=== PATIENT | male | born 1980 | race American Indian/Alaskan Native ===

== ENCOUNTER 2018-11-12 14:52 | Observation (INO) | payer SELFPAY ==
--- NOTE | 2018-11-12 14:58 | Emergency Department Report ---
Blank Doc - Documentation Documentation: This is a 38-year-old male that presents with generalized weakness. Denies any pain. This initial assessment/diagnostic orders/clinical plan/treatment(s) is/are subject to change based on patient's health status, clinical progression and re- assessment by fellow clinical providers in the ED. Further treatment and workup at subsequent clinical providers discretion. Patient/guardians urged not to elope from the ED as their condition may be serious if not clinically assessed and managed. Initial orders include: 1- Patient sent to [facility] for further evaluation and treatment 2- labs 3- UA
[2018-11-12 15:44] LABS: Basophils % (Auto) 0.4 % (0.0-1.8); Eosinophils % (Auto) 0.6 % (0.0-4.3); Hematocrit 36.3 % (35.5-45.6); Lymphocytes # (Auto) 1.2 K/mm3 (1.2-5.4); Lymphocytes % (Auto) 17.2 % (13.4-35.0); Mean Corpuscular HGB Conc 33 % (32-34); Mean Corpuscular Volume 91 fl (84-94); Monocytes # (Auto) 0.6 K/mm3 (0.0-0.8); Monocytes % (Auto) 9.4 % (0.0-7.3); Platelet Count 212 K/mm3 (140-440); Red Blood Count 4.01 M/mm3 (3.65-5.03); Red Cell Distribution Width 14.3 % (13.2-15.2)
[2018-11-12 15:45] LABS: Alanine Aminotransferase 84 units/L (7-56); BUN/Creatinine Ratio 20; Blood Urea Nitrogen 8 mg/dL (9-20); Calcium 9.3 mg/dL (8.4-10.2); Hemolysis Index 4
[2018-11-12 15:59] LABS: Bilirubin,Urine NEG (Negative); Blood,Urine NEG (Negative); Color,Urine Straw (Yellow); Mucus,Urine FEW /HPF; Protein,Urine <15 mg/dL mg/dL (Negative); Urobilinogen,Urine < 2.0 mg/dL (<2.0); WBC,Urine < 1.0 /HPF (0.0-6.0)
[2018-11-12] MEDS ORDERED: NACL 0.9% 500 ML 500 ML IV ONE (16:29)
[2018-11-12] MEDS ORDERED: HumuLIN R IV ONE (16:29)
--- NOTE | 2018-11-12 16:33 | Emergency Department Report ---
ED General Adult HPI - General Chief complaint: Weakness Stated complaint: WEAKNESS Time Seen by Provider: 11/12/18 14:56 Source: patient, RN notes reviewed Mode of arrival: Ambulatory Limitations: No Limitations - History of Present Illness Initial comments: This is a 38-year-old gentleman. The patient is not known to this provider previously. His past medical history includes diabetes and pancreatitis. He reports supposed to be taking metformin and glipizide. He has been out of his medications. He presents to the emergency room with a complaint of painless weakness. This is present for over 1 month. It is associated with unintentional weight loss. He endorses malaise and fatigue. He denies physical pain. He endorses bright red blood per rectum. Symptoms present for 1 month. No headache, neck pain, chest pain or abdominal pain. Positive new abdominal distention. Positive new lower extremity erythematous rashes. No recent acetaminophen consumption. Endorses recreational alcohol consumption. -: Gradual, week(s) Consistency: constant Improves with: none Worsens with: none - Related Data Allergies Allergy/AdvReac Type Severity Reaction Status Date / Time No Known Allergies Allergy Unverified 11/12/18 14:55 ED Review of Systems ROS: Stated complaint: WEAKNESS Other details as noted in HPI Constitutional: malaise, weakness. denies: fever Eyes: denies: eye discharge ENT: denies: epistaxis Respiratory: denies: cough Cardiovascular: denies: chest pain Gastrointestinal: hematochezia Genitourinary: denies: dysuria Musculoskeletal: myalgia Skin: rash, lesions Neurological: weakness. denies: headache ED Past Medical Hx - Past Medical History Previous Medical History?: Yes Hx Diabetes: Yes Additional medical history: Pancreatitis - Surgical History Past Surgical History?: No - Social History Smoking Status: Current Every Day Smoker Substance Use Type: Alcohol, Marijuana ED Physical Exam - General Limitations: No Limitations General appearance: alert, in no apparent distress, cachectic - Head Head exam: Present: atraumatic, normocephalic - Eye Eye exam: Present: normal appearance, EOMI. Absent: nystagmus - ENT ENT exam: Present: normal exam, normal orophraynx, mucous membranes moist, normal external ear exam - Neck Neck exam: Present: normal inspection, full ROM. Absent: tenderness, meningismus - Respiratory Respiratory exam: Present: normal lung sounds bilaterally. Absent: respiratory distress - Cardiovascular Cardiovascular Exam: Present: regular rate, normal rhythm, normal heart sounds. Absent: bradycardia, tachycardia, irregular rhythm, systolic murmur, diastolic murmur, rubs, gallop - GI/Abdominal GI/Abdominal exam: Present: soft, distended. Absent: tenderness, guarding, rebound, rigid, pulsatile mass - Rectal Rectal exam: Present: normal inspection, bloody stool, hemorrhoids (internal hemorrhoids appreciated), other (chaperoned by nurse Inga Gotti) - Extremities Exam Extremities exam: Present: normal inspection (scattered nontender lower extremity telangiectasias noted), full ROM, other (2+ pulses noted in the bilateral upper, lower extremities. Compartments soft. No long bony tenderness. The pelvis is stable.). Absent: joint swelling, calf tenderness - Back Exam Back exam: Present: normal inspection, full ROM. Absent: tenderness, CVA tenderness (R), CVA tenderness (L), paraspinal tenderness, vertebral tenderness - Neurological Exam Neurological exam: Present: alert, normal gait, other (Extraocular movements intact. Tongue midline. No facial droop. Facial sensation intact to light to uch in the V1, V2, V3 distribution bilaterally. 5 and 5 strength in 4 extremities.. Sensation is intact to light touch in 4 extremities.). Absent: motor sensory deficit - Psychiatric Psychiatric exam: Present: normal affect, normal mood - Skin Skin exam: Present: warm, dry, intact, normal color. Absent: rash ED Course Vital Signs 11/12/18 11/12/18 11/12/18 14:57 16:30 16:33 Temperature 98.3 F Pulse Rate 80 80 85 Respiratory 16 16 18 Rate Blood Pressure 102/71 Blood Pressure 112/81 [Left] O2 Sat by Pulse 100 98 99 Oximetry 11/12/18 11/12/18 11/12/18 17:10 17:25 21:18 Temperature 98.3 F Pulse Rate 72 68 Respiratory 14 14 15 Rate Blood Pressure Blood Pressure 120/81 102/70 [Left] O2 Sat by Pulse 98 99 Oximetry - Reevaluation(s) Reevaluation #1: 11/12/18 17:34 Differential diagnosis, including but not limited to: Cirrhosis, malignancy, DKA, dehydration, malnutrition, electrolyte derangement, hepatitis GI bleed Assessment and plan: 38-year-old gentleman with a complaint of painless weakness, abdominal distention, and rectal bleeding. Laboratory studies show hyperglycemia, pseudohyponatremia, transaminitis, physical exam shows a cachecti c wasted-appearing male, with probable internal hemorrhoids, although bright red blood per rectum is noted on examination. For his hyperglycemia, he will be given IV fluids, and insulin. Patient endorses that he does not have insurance, that he does not have a primary care doctor, and he is not able to and not reliable to follow-up as an outpatient. He is amenable to packed red blood cell transfusion if necessary. Additional screening laboratory studies, including acute hepatitis panel, coagulation profile, acetaminophen, CEA ordered, and addition to CT scan of the abdomen and pelvis. He will be given IV fluids. Discussed with gastroenterology, Dr. Coelho, who is amenable to following in consultation. Reevaluation #2: 11/12/18 19:49 case presented to [facility], working with DR Gallegos patient admitted to medical service ED Medical Decision Making - Lab Data Result diagrams: 11/12/18 15:03 11/12/18 15:03 Vital Signs 11/12/18 11/12/18 11/12/18 14:57 16:30 16:33 Temperature 98.3 F Pulse Rate 80 80 85 Respiratory 16 16 18 Rate Blood Pressure 102/71 Blood Pressure 112/81 [Left] O2 Sat by Pulse 100 98 99 Oximetry 11/12/18 11/12/18 17:10 17:25 Temperature Pulse Rate 72 Respiratory 14 14 Rate Blood Pressure Blood Pressure 120/81 [Left] O2 Sat by Pulse 98 Oximetry Lab Results 11/12/18 11/12/18 11/12/18 Range/Units 15:03 15:03 15:03 WBC 6.9 (4.5-11.0) K/mm3 RBC 4.01 (3.65-5.03) M/mm3 Hgb 12.0 (11.8-15.2) gm/dl Hct 36.3 (35.5-45.6) % MCV 91 (84-94) fl MCH 30 (28-32) pg MCHC 33 (32-34) % RDW 14.3 (13.2-15.2) % Plt Count 212 (140-440) K/mm3 Lymph % (Auto) 17.2 (13.4-35.0) % [place] % (Auto) 9.4 H (0.0-7.3) % Eos % (Auto) 0.6 (0.0-4.3) % Baso % (Auto) 0.4 (0.0-1.8) % Lymph # 1.2 (1.2-5.4) K/mm3 [place] # 0.6 (0.0-0.8) K/mm3 Eos # 0.0 (0.0-0.4) K/mm3 Baso # 0.0 (0.0-0.1) K/mm3 Seg Neutrophils % 72.4 H (40.0-70.0) % Seg Neutrophils # 5.0 (1.8-7.7) K/mm3 PT (12.2-14.9) Sec. INR (0.87-1.13) APTT (24.2-36.6) Sec. VBG pH 7.392 (7.320-7.420) Sodium 127 L (137-145) mmol/L Potassium 4.7 (3.6-5.0) mmol/L Chloride 90.3 L (98-107) mmol/L Carbon Dioxide 24 (22-30) mmol/L Anion Gap 17 mmol/L BUN 8 L (9-20) mg/dL Creatinine 0.4 L (0.8-1.5) mg/dL Estimated GFR > 60 ml/min BUN/Creatinine Ratio 20 % Glucose 575 H* (75-100) mg/dL Lactic Acid (0.7-2.0) mmol/L Calcium 9.3 (8.4-10.2) mg/dL Magnesium (1.7-2.3) mg/dL Total Bilirubin 0.30 (0.1-1.2) mg/dL AST 165 H (5-40) units/L ALT 84 H (7-56) units/L Alkaline Phosphatase 192 H (35-129) units/L Total Creatine Kinase (55-170) units/L Total Protein 7.1 (6.3-8.2) g/dL Albumin 4.0 (3.9-5) g/dL Albumin/Globulin Ratio 1.3 % Lipase (13-60) units/L Urine Color (Yellow) Urine Turbidity (Clear) Urine pH (5.0-7.0) Ur Specific [place] (1.003-1.030) Urine Protein (Negative) mg/dL Urine Glucose (UA) (Negative) mg/dL Urine Ketones (Negative) mg/dL Urine Blood (Negative) Urine Nitrite (Negative) Urine Bilirubin (Negative) Urine Urobilinogen (<2.0) mg/dL Ur Leukocyte Esterase (Negative) Urine WBC (Auto) (0.0-6.0) /HPF Urine RBC (Auto) (0.0-6.0) /HPF U Epithel Cells (Auto) (0-13.0) /HPF Urine Mucus /HPF Acetaminophen (10.0-30.0) ug/mL 11/12/18 11/12/18 11/12/18 Range/Units 15:20 16:50 16:50 WBC (4.5-11.0) K/mm3 RBC (3.65-5.03) M/mm3 Hgb (11.8-15.2) gm/dl Hct (35.5-45.6) % MCV (84-94) fl MCH (28-32) pg MCHC (32-34) % RDW (13.2-15.2) % Plt Count (140-440) K/mm3 Lymph % (Auto) (13.4-35.0) % [place] % (Auto) (0.0-7.3) % Eos % (Auto) (0.0-4.3) % Baso % (Auto) (0.0-1.8) % Lymph # (1.2-5.4) K/mm3 [place] # (0.0-0.8) K/mm3 Eos # (0.0-0.4) K/mm3 Baso # (0.0-0.1) K/mm3 Seg Neutrophils % (40.0-70.0) % Seg Neutrophils # (1.8-7.7) K/mm3 PT (12.2-14.9) Sec. INR (0.87-1.13) APTT (24.2-36.6) Sec. VBG pH (7.320-7.420) Sodium (137-145) mmol/L Potassium (3.6-5.0) mmol/L Chloride (98-107) mmol/L Carbon Dioxide (22-30) mmol/L Anion Gap mmol/L BUN (9-20) mg/dL Creatinine (0.8-1.5) mg/dL Estimated GFR ml/min BUN/Creatinine Ratio % Glucose (75-100) mg/dL Lactic Acid 2.20 H* (0.7-2.0) mmol/L Calcium (8.4-10.2) mg/dL Magnesium 1.80 (1.7-2.3) mg/dL Total Bilirubin (0.1-1.2) mg/dL AST (5-40) units/L ALT (7-56) units/L Alkaline Phosphatase (35-129) units/L Total Creatine Kinase 144 (55-170) units/L Total Protein (6.3-8.2) g/dL Albumin (3.9-5) g/dL Albumin/Globulin Ratio % Lipase (13-60) units/L Urine Color Straw (Yellow) Urine Turbidity Clear (Clear) Urine pH 5.0 (5.0-7.0) Ur Specific [place] 1.028 (1.003-1.030) Urine Protein <15 mg/dl (Negative) mg/dL Urine Glucose (UA) >=500 (Negative) mg/dL Urine Ketones Tr (Negative) mg/dL Urine Blood Neg (Negative) Urine Nitrite Neg (Negative) Urine Bilirubin Neg (Negative) Urine Urobilinogen < 2.0 (<2.0) mg/dL Ur Leukocyte Esterase Neg (Negative) Urine WBC (Auto) < 1.0 (0.0-6.0) /HPF Urine RBC (Auto) 1.0 (0.0-6.0) /HPF U Epithel Cells (Auto) < 1.0 (0-13.0) /HPF Urine Mucus Few /HPF Acetaminophen (10.0-30.0) ug/mL 11/12/18 11/12/18 11/12/18 Range/Units 16:50 16:50 16:50 WBC (4.5-11.0) K/mm3 RBC (3.65-5.03) M/mm3 Hgb (11.8-15.2) gm/dl Hct (35.5-45.6) % MCV (84-94) fl MCH (28-32) pg MCHC (32-34) % RDW (13.2-15.2) % Plt Count (140-440) K/mm3 Lymph % (Auto) (13.4-35.0) % [place] % (Auto) (0.0-7.3) % Eos % (Auto) (0.0-4.3) % Baso % (Auto) (0.0-1.8) % Lymph # (1.2-5.4) K/mm3 [place] # (0.0-0.8) K/mm3 Eos # (0.0-0.4) K/mm3 Baso # (0.0-0.1) K/mm3 Seg Neutrophils % (40.0-70.0) % Seg Neutrophils # (1.8-7.7) K/mm3 PT 14.8 (12.2-14.9) Sec. INR 1.09 (0.87-1.13) APTT 28.1 (24.2-36.6) Sec. VBG pH (7.320-7.420) Sodium (137-145) mmol/L Potassium (3.6-5.0) mmol/L Chloride (98-107) mmol/L Carbon Dioxide (22-30) mmol/L Anion Gap mmol/L BUN (9-20) mg/dL Creatinine (0.8-1.5) mg/dL Estimated GFR ml/min BUN/Creatinine Ratio % Glucose (75-100) mg/dL Lactic Acid (0.7-2.0) mmol/L Calcium (8.4-10.2) mg/dL Magnesium (1.7-2.3) mg/dL Total Bilirubin (0.1-1.2) mg/dL AST (5-40) units/L ALT (7-56) units/L Alkaline Phosphatase (35-129) units/L Total Creatine Kinase (55-170) units/L Total Protein (6.3-8.2) g/dL Albumin (3.9-5) g/dL Albumin/Globulin Ratio % Lipase 47 (13-60) units/L Urine Color (Yellow) Urine Turbidity (Clear) Urine pH (5.0-7.0) Ur Specific [place] (1.003-1.030) Urine Protein (Negative) mg/dL Urine Glucose (UA) (Negative) mg/dL Urine Ketones (Negative) mg/dL Urine Blood (Negative) Urine Nitrite (Negative) Urine Bilirubin (Negative) Urine Urobilinogen (<2.0) mg/dL Ur Leukocyte Esterase (Negative) Urine WBC (Auto) (0.0-6.0) /HPF Urine RBC (Auto) (0.0-6.0) /HPF U Epithel Cells (Auto) (0-13.0) /HPF Urine Mucus /HPF Acetaminophen < 5.0 L (10.0-30.0) ug/mL Lab Results 11/12/18 11/12/18 11/12/18 Range/Units 15:03 15:03 15:03 WBC 6.9 (4.5-11.0) K/mm3 RBC 4.01 (3.65-5.03) M/mm3 Hgb 12.0 (11.8-15.2) gm/dl Hct 36.3 (35.5-45.6) % MCV 91 (84-94) fl MCH 30 (28-32) pg MCHC 33 (32-34) % RDW 14.3 (13.2-15.2) % Plt Count 212 (140-440) K/mm3 Lymph % (Auto) 17.2 (13.4-35.0) % [place] % (Auto) 9.4 H (0.0-7.3) % Eos % (Auto) 0.6 (0.0-4.3) % Baso % (Auto) 0.4 (0.0-1.8) % Lymph # 1.2 (1.2-5.4) K/mm3 [place] # 0.6 (0.0-0.8) K/mm3 Eos # 0.0 (0.0-0.4) K/mm3 Baso # 0.0 (0.0-0.1) K/mm3 Seg Neutrophils % 72.4 H (40.0-70.0) % Seg Neutrophils # 5.0 (1.8-7.7) K/mm3 PT (12.2-14.9) Sec. INR (0.87-1.13) APTT (24.2-36.6) Sec. VBG pH 7.392 (7.320-7.420) Sodium 127 L (137-145) mmol/L Potassium 4.7 (3.6-5.0) mmol/L Chloride 90.3 L (98-107) mmol/L Carbon Dioxide 24 (22-30) mmol/L Anion Gap 17 mmol/L BUN 8 L (9-20) mg/dL Creatinine 0.4 L (0.8-1.5) mg/dL Estimated GFR > 60 ml/min BUN/Creatinine Ratio 20 % Glucose 575 H* (75-100) mg/dL Lactic Acid (0.7-2.0) mmol/L Calcium 9.3 (8.4-10.2) mg/dL Magnesium (1.7-2.3) mg/dL Total Bilirubin 0.30 (0.1-1.2) mg/dL AST 165 H (5-40) units/L ALT 84 H (7-56) units/L Alkaline Phosphatase 192 H (35-129) units/L Ammonia (25-60) umol/L Total Creatine Kinase (55-170) units/L Total Protein 7.1 (6.3-8.2) g/dL Albumin 4.0 (3.9-5) g/dL Albumin/Globulin Ratio 1.3 % Lipase (13-60) units/L Urine Color (Yellow) Urine Turbidity (Clear) Urine pH (5.0-7.0) Ur Specific [place] (1.003-1.030) Urine Protein (Negative) mg/dL Urine Glucose (UA) (Negative) mg/dL Urine Ketones (Negative) mg/dL Urine Blood (Negative) Urine Nitrite (Negative) Urine Bilirubin (Negative) Urine Urobilinogen (<2.0) mg/dL Ur Leukocyte Esterase (Negative) Urine WBC (Auto) (0.0-6.0) /HPF Urine RBC (Auto) (0.0-6.0) /HPF U Epithel Cells (Auto) (0-13.0) /HPF Urine Mucus /HPF Acetaminophen (10.0-30.0) ug/mL Hepatitis A IgM Ab (NonReactive) Hep Bs Antigen (Negative) Hep B Core IgM Ab (NonReactive) Hepatitis C Antibody (NonReactive) Blood Type Antibody Screen CLAIRE Antibody Screen 11/12/18 11/12/18 11/12/18 Range/Units 15:20 16:50 16:50 WBC (4.5-11.0) K/mm3 RBC (3.65-5.03) M/mm3 Hgb (11.8-15.2) gm/dl Hct (35.5-45.6) % MCV (84-94) fl MCH (28-32) pg MCHC (32-34) % RDW (13.2-15.2) % Plt Count (140-440) K/mm3 Lymph % (Auto) (13.4-35.0) % [place] % (Auto) (0.0-7.3) % Eos % (Auto) (0.0-4.3) % Baso % (Auto) (0.0-1.8) % Lymph # (1.2-5.4) K/mm3 [place] # (0.0-0.8) K/mm3 Eos # (0.0-0.4) K/mm3 Baso # (0.0-0.1) K/mm3 Seg Neutrophils % (40.0-70.0) % Seg Neutrophils # (1.8-7.7) K/mm3 PT (12.2-14.9) Sec. INR (0.87-1.13) APTT (24.2-36.6) Sec. VBG pH (7.320-7.420) Sodium (137-145) mmol/L Potassium (3.6-5.0) mmol/L Chloride (98-107) mmol/L Carbon Dioxide (22-30) mmol/L Anion Gap mmol/L BUN (9-20) mg/dL Creatinine (0.8-1.5) mg/dL Estimated GFR ml/min BUN/Creatinine Ratio % Glucose (75-100) mg/dL Lactic Acid 2.20 H* (0.7-2.0) mmol/L Calcium (8.4-10.2) mg/dL Magnesium 1.80 (1.7-2.3) mg/dL Total Bilirubin (0.1-1.2) mg/dL AST (5-40) units/L ALT (7-56) units/L Alkaline Phosphatase (35-129) units/L Ammonia (25-60) umol/L Total Creatine Kinase 144 (55-170) units/L Total Protein (6.3-8.2) g/dL Albumin (3.9-5) g/dL Albumin/Globulin Ratio % Lipase (13-60) units/L Urine Color Straw (Yellow) Urine Turbidity Clear (Clear) Urine pH 5.0 (5.0-7.0) Ur Specific [place] 1.028 (1.003-1.030) Urine Protein <15 mg/dl (Negative) mg/dL Urine Glucose (UA) >=500 (Negative) mg/dL Urine Ketones Tr (Negative) mg/dL Urine Blood Neg (Negative) Urine Nitrite Neg (Negative) Urine Bilirubin Neg (Negative) Urine Urobilinogen < 2.0 (<2.0) mg/dL Ur Leukocyte Esterase Neg (Negative) Urine WBC (Auto) < 1.0 (0.0-6.0) /HPF Urine RBC (Auto) 1.0 (0.0-6.0) /HPF U Epithel Cells (Auto) < 1.0 (0-13.0) /HPF Urine Mucus Few /HPF Acetaminophen (10.0-30.0) ug/mL Hepatitis A IgM Ab (NonReactive) Hep Bs Antigen (Negative) Hep B Core IgM Ab (NonReactive) Hepatitis C Antibody (NonReactive) Blood Type Antibody Screen CLAIRE Antibody Screen 11/12/18 11/12/18 11/12/18 Range/Units 16:50 16:50 16:50 WBC (4.5-11.0) K/mm3 RBC (3.65-5.03) M/mm3 Hgb (11.8-15.2) gm/dl Hct (35.5-45.6) % MCV (84-94) fl MCH (28-32) pg MCHC (32-34) % RDW (13.2-15.2) % Plt Count (140-440) K/mm3 Lymph % (Auto) (13.4-35.0) % [place] % (Auto) (0.0-7.3) % Eos % (Auto) (0.0-4.3) % Baso % (Auto) (0.0-1.8) % Lymph # (1.2-5.4) K/mm3 [place] # (0.0-0.8) K/mm3 Eos # (0.0-0.4) K/mm3 Baso # (0.0-0.1) K/mm3 Seg Neutrophils % (40.0-70.0) % Seg Neutrophils # (1.8-7.7) K/mm3 PT 14.8 (12.2-14.9) Sec. INR 1.09 (0.87-1.13) APTT 28.1 (24.2-36.6) Sec. VBG pH (7.320-7.420) Sodium (137-145) mmol/L Potassium (3.6-5.0) mmol/L Chloride (98-107) mmol/L Carbon Dioxide (22-30) mmol/L Anion Gap mmol/L BUN (9-20) mg/dL Creatinine (0.8-1.5) mg/dL Estimated GFR ml/min BUN/Creatinine Ratio % Glucose (75-100) mg/dL Lactic Acid (0.7-2.0) mmol/L Calcium (8.4-10.2) mg/dL Magnesium (1.7-2.3) mg/dL Total Bilirubin (0.1-1.2) mg/dL AST (5-40) units/L ALT (7-56) units/L Alkaline Phosphatase (35-129) units/L Ammonia 35.0 (25-60) umol/L Total Creatine Kinase (55-170) units/L Total Protein (6.3-8.2) g/dL Albumin (3.9-5) g/dL Albumin/Globulin Ratio % Lipase (13-60) units/L Urine Color (Yellow) Urine Turbidity (Clear) Urine pH (5.0-7.0) Ur Specific [place] (1.003-1.030) Urine Protein (Negative) mg/dL Urine Glucose (UA) (Negative) mg/dL Urine Ketones (Negative) mg/dL Urine Blood (Negative) Urine Nitrite (Negative) Urine Bilirubin (Negative) Urine Urobilinogen (<2.0) mg/dL Ur Leukocyte Esterase (Negative) Urine WBC (Auto) (0.0-6.0) /HPF Urine RBC (Auto) (0.0-6.0) /HPF U Epithel Cells (Auto) (0-13.0) /HPF Urine Mucus /HPF Acetaminophen (10.0-30.0) ug/mL Hepatitis A IgM Ab (NonReactive) Hep Bs Antigen (Negative) Hep B Core IgM Ab (NonReactive) Hepatitis C Antibody (NonReactive) Blood Type O POSITIVE Antibody Screen TNR CLAIRE Antibody Screen Negative 11/12/18 11/12/18 11/12/18 Range/Units 16:50 16:50 16:50 WBC (4.5-11.0) K/mm3 RBC (3.65-5.03) M/mm3 Hgb (11.8-15.2) gm/dl Hct (35.5-45.6) % MCV (84-94) fl MCH (28-32) pg MCHC (32-34) % RDW (13.2-15.2) % Plt Count (140-440) K/mm3 Lymph % (Auto) (13.4-35.0) % [place] % (Auto) (0.0-7.3) % Eos % (Auto) (0.0-4.3) % Baso % (Auto) (0.0-1.8) % Lymph # (1.2-5.4) K/mm3 [place] # (0.0-0.8) K/mm3 Eos # (0.0-0.4) K/mm3 Baso # (0.0-0.1) K/mm3 Seg Neutrophils % (40.0-70.0) % Seg Neutrophils # (1.8-7.7) K/mm3 PT (12.2-14.9) Sec. INR (0.87-1.13) APTT (24.2-36.6) Sec. VBG pH (7.320-7.420) Sodium (137-145) mmol/L Potassium (3.6-5.0) mmol/L Chloride (98-107) mmol/L Carbon Dioxide (22-30) mmol/L Anion Gap mmol/L BUN (9-20) mg/dL Creatinine (0.8-1.5) mg/dL Estimated GFR ml/min BUN/Creatinine Ratio % Glucose (75-100) mg/dL Lactic Acid (0.7-2.0) mmol/L Calcium (8.4-10.2) mg/dL Magnesium (1.7-2.3) mg/dL Total Bilirubin (0.1-1.2) mg/dL AST (5-40) units/L ALT (7-56) units/L Alkaline Phosphatase (35-129) units/L Ammonia (25-60) umol/L Total Creatine Kinase (55-170) units/L Total Protein (6.3-8.2) g/dL Albumin (3.9-5) g/dL Albumin/Globulin Ratio % Lipase 47 (13-60) units/L Urine Color (Yellow) Urine Turbidity (Clear) Urine pH (5.0-7.0) Ur Specific [place] (1.003-1.030) Urine Protein (Negative) mg/dL Urine Glucose (UA) (Negative) mg/dL Urine Ketones (Negative) mg/dL Urine Blood (Negative) Urine Nitrite (Negative) Urine Bilirubin (Negative) Urine Urobilinogen (<2.0) mg/dL Ur Leukocyte Esterase (Negative) Urine WBC (Auto) (0.0-6.0) /HPF Urine RBC (Auto) (0.0-6.0) /HPF U Epithel Cells (Auto) (0-13.0) /HPF Urine Mucus /HPF Acetaminophen < 5.0 L (10.0-30.0) ug/mL Hepatitis A IgM Ab Non-reactive (NonReactive) Hep Bs Antigen Non-reactive (Negative) Hep B Core IgM Ab Non-reactive (NonReactive) Hepatitis C Antibody Non-reactive (NonReactive) Blood Type Antibody Screen CLAIRE Antibody Screen 11/12/18 Range/Units 17:52 WBC (4.5-11.0) K/mm3 RBC (3.65-5.03) M/mm3 Hgb (11.8-15.2) gm/dl Hct (35.5-45.6) % MCV (84-94) fl MCH (28-32) pg MCHC (32-34) % RDW (13.2-15.2) % Plt Count (140-440) K/mm3 Lymph % (Auto) (13.4-35.0) % [place] % (Auto) (0.0-7.3) % Eos % (Auto) (0.0-4.3) % Baso % (Auto) (0.0-1.8) % Lymph # (1.2-5.4) K/mm3 [place] # (0.0-0.8) K/mm3 Eos # (0.0-0.4) K/mm3 Baso # (0.0-0.1) K/mm3 Seg Neutrophils % (40.0-70.0) % Seg Neutrophils # (1.8-7.7) K/mm3 PT (12.2-14.9) Sec. INR (0.87-1.13) APTT (24.2-36.6) Sec. VBG pH (7.320-7.420) Sodium (137-145) mmol/L Potassium (3.6-5.0) mmol/L Chloride (98-107) mmol/L Carbon Dioxide (22-30) mmol/L Anion Gap mmol/L BUN (9-20) mg/dL Creatinine (0.8-1.5) mg/dL Estimated GFR ml/min BUN/Creatinine Ratio % Glucose (75-100) mg/dL Lactic Acid 1.40 (0.7-2.0) mmol/L Calcium (8.4-10.2) mg/dL Magnesium (1.7-2.3) mg/dL Total Bilirubin (0.1-1.2) mg/dL AST (5-40) units/L ALT (7-56) units/L Alkaline Phosphatase (35-129) units/L Ammonia (25-60) umol/L Total Creatine Kinase (55-170) units/L Total Protein (6.3-8.2) g/dL Albumin (3.9-5) g/dL Albumin/Globulin Ratio % Lipase (13-60) units/L Urine Color (Yellow) Urine Turbidity (Clear) Urine pH (5.0-7.0) Ur Specific [place] (1.003-1.030) Urine Protein (Negative) mg/dL Urine Glucose (UA) (Negative) mg/dL Urine Ketones (Negative) mg/dL Urine Blood (Negative) Urine Nitrite (Negative) Urine Bilirubin (Negative) Urine Urobilinogen (<2.0) mg/dL Ur Leukocyte Esterase (Negative) Urine WBC (Auto) (0.0-6.0) /HPF Urine RBC (Auto) (0.0-6.0) /HPF U Epithel Cells (Auto) (0-13.0) /HPF Urine Mucus /HPF Acetaminophen (10.0-30.0) ug/mL Hepatitis A IgM Ab (NonReactive) Hep Bs Antigen (Negative) Hep B Core IgM Ab (NonReactive) Hepatitis C Antibody (NonReactive) Blood Type Antibody Screen CLAIRE Antibody Screen - EKG Data -: EKG Interpreted by Sd EKG shows normal: sinus rhythm Rate: normal - EKG Data 11/12/18 17:38 This is a normal sinus rhythm, 76 bpm, normal axis, QTC prolonged, question atrial enlargement, motion artifact, high left ventricular voltage, abnormal EKG, no endorsement of chest pain, this EKG is not consistent with ST elevation myocardial infarction. - Radiology Data Radiology results: pending, report reviewed, image reviewed Print Report Referring Physician: VANESSA OSEI Patient Name: VANESSA VICENTE Date of : 1980 Sex: Male Report Date: 2018-11-12 Report Status: Finalized Findings [facility] [address] [id number] Cat Scan Report Signed Patient: VANESSA VICENTE JR MR#: [id number] : 1980 Acct:[id number] Age/Sex: 38 / M ADM Date: 11/12/18 Loc: 3A A389-[address]: JUD GALLEGOS MD Ordering Physician: VANESSA OSEI MD Date of Service: 11/12/18 Procedure(s): CT abdomen pelvis w con Accession Number(s): [id number] cc: VANESSA OSEI MD PROCEDURE: CT ABDOMEN PELVIS W CON TECHNIQUE: Computerized axial tomography of the abdomen and pelvis was performed after the IV injection of iodinated nonionic contrast. CT DOSE LENGTH PRODUCT: 729.3 mGycm HISTORY: abd distension ascites suspect ca vs cirrhosis COMPARISONS: None . FINDINGS: Liver, spleen, and adrenal glands are within normal limits. Bilateral kidneys demonstrate uniform enhancement without hydronephrosis. Urinary bladder is partially filled with normal outlines. There is no free fluid or free air. Gallbladder is unremarkable. Small bowel loops are within normal limits. Appendix is not distinctly visualized. There are no inflammatory changes in the right lower quadrant.. There is diffuse calcification of pancreas. A well- defined cystic lesion measuring 8.0 cm 0.5 cm is noted superior to the pancreas displacing the stomach superiorly. An irregular fluid collection is noted measuring 2.7 x 2.2 cm involving the pancreatic neck. Vertebral height is normal. 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 Diffuse calcification of pancreas is consistent with chronic pancreatitis. This document is electronically signed by Kaycee Robbins MD., November 12 2018 10:10:57 PM ET Transcribed By: [facility] [place] Dictated By: KAYCEE ROBBINS Electronically Authenticated By: KAYCEE ROBBINS Signed Date/Time: 11/12/182111 Critical care attestation.: If time is entered above; I have spent that time in minutes in the direct care of this critically ill patient, excluding procedure time. ED Disposition Clinical Impression: Lower GI bleed, Hyperglycemia, Case management patient Disposition: DC-09 OP ADMIT IP TO THIS HOSP Is pt being admited?: Yes Condition: Fair
[2018-11-12 17:34] LABS: INR 1.09 (0.87-1.13)
[2018-11-12 17:36] LABS: Partial Thromboplastin Time 28.1 Sec. (24.2-36.6)
[2018-11-12 17:55] LABS: Hepatitis B Surface Antigen Non-Reactive (Negative); Hepatitis C Virus Antibody Non-Reactive (NonReactive)
[2018-11-12] MEDS ORDERED: MORPHINE IV PRN (20:06)
[2018-11-12] MEDS ORDERED: ZOFRAN IV PRN (20:06)
[2018-11-12] MEDS ORDERED: TYLENOL PO PRN (20:06)
[2018-11-12] MEDS ORDERED: SODIUM CHLORIDE FLUSH SYRINGE 10 ML IV PRN (20:06)
[2018-11-12] MEDS ORDERED: DILAUDID IV PRN (20:08)
[2018-11-12] MEDS ORDERED: D50W (25GM) Syringe IV PRN (20:21)
--- NOTE | 2018-11-12 20:46 | History and Physical Report ---
<VANNESA ARMENDARIZ - Last Filed: 11/12/18 21:17> History of Present Illness Date of examination: 11/12/18 Date of admission: 11/12/18 20:06 Chief complaint: Generalized weakness and gross blood per rectum History of present illness: 38-year-old -[place] male with history of hemorrhoids, DM 2, pancreatitis who presented to [facility] ED with complaints of generalized weakness and bright red blood per rectum. Patient states that he feels fatigued and weak for the past week. Additionally he has bright blood per rectum for the past mo nth. He states that he thought rectal bleeding was due to hemorrhoids "flareup ". He reports that he has had unintentional weight loss over the past month. Patient states that he does not have medical insurance and ran out of metformin and glipizide about a month ago. He is unsure whether or not the fatigue is due to hyperglycemia. Admits to unintentional weight loss, malaise, fatigue. Denies fever, cough, dyspnea, chest pain, recent sick contacts Past History Past Medical History: diabetes (DM 2), seizures (one episode of questionable seizure history), other (pancreatitis, hemorrhoids) Past Surgical History: No surgical history Social history: smoking (tobacco smokes 1 pack a day, and marijuana abuse), other (admits to social drinking once in a while) Family history: no significant family history Medications and Allergies Allergies Allergy/AdvReac Type Severity Reaction Status Date / Time No Known Allergies Allergy Unverified 11/12/18 14:55 Active Meds: Active Medications Acetaminophen (Tylenol) 650 mg PO Q4H PRN PRN Reason: Pain MILD(1-3)/Fever >100.5/ONOFRE Dextrose (D50w (25gm) Syringe) 50 ml IV PRN PRN PRN Reason: Hypoglycemia Hydromorphone HCl (Dilaudid) 0.5 mg IV Q3H PRN PRN Reason: Pain , Severe (7-10) Stop: 11/13/18 23:59 Sodium Chloride (Nacl 0.9% 1000 Ml) 1,000 mls @ 125 mls/hr IV DIRECT [facility] Insulin Human Lispro (Humalog) 0 unit SUB-Q ACHS [facility]; Protocol Insulin Human Regular (Humulin R) 10 units SUB-Q QHS [facility] Morphine Sulfate (Morphine) 2 mg IV Q4H PRN PRN Reason: Pain, Moderate (4-6) Stop: 11/13/18 23:59 Nicotine (Habitrol) 14 mg TD QDAY [facility] Ondansetron HCl (Zofran) 4 mg IV Q8H PRN PRN Reason: Nausea And Vomiting Sodium Chloride (Sodium Chloride Flush Syringe 10 Ml) 10 ml IV BID [facility] Sodium Chloride (Sodium Chloride Flush Syringe 10 Ml) 10 ml IV PRN PRN PRN Reason: LINE FLUSH Review of Systems All systems: negative (reviewed and no additional unremarkable complaints except as noted below) Constitutional: weight loss (unintentional), fatigue, weakness, malaise Gastrointestinal: hematochezia, other (gross blood per rectum) Exam - Physical Exam Narrative exam: Physical exam General appearance: Present: Mild distress, alert and oriented 3, middle age adult male - EENT Eyes: Present: PERRL, EOM intact ENT: hearing intact, normal dentition - Neck Neck: Present: supple, normal ROM - Respiratory Respiratory effort: Non-labored Respiratory: Clear throughout - Cardiovascular Heart rate: 76 (bpm) Rhythm: Sinus rhythm Heart Sounds: Present: S1 & S2. Absent: rub, click - Extremities Extremities: no ischemia, pulses intact, abnormal () - Peripheral Assessment Peripheral Pulses: within normal limits - Abdominal General gastrointestinal: Distended, soft, non-tender, normal bowel sounds - Integumentary Integumentary: Present: warm, dry - Musculoskeletal Musculoskeletal: generalized weakness - Psychiatric Psychiatric: Appropriate for situation, cooperative - Constitutional Vitals: Temp Pulse Resp BP Pulse Ox 98.3 F 72 14 120/81 98 11/12/18 14:57 11/12/18 17:25 11/12/18 17:25 11/12/18 17:25 11/12/18 17:25 Results - Labs CBC & Chem 7: 11/12/18 15:03 11/12/18 15:03 Labs: Laboratory Last Values WBC 6.9 K/mm3 (4.5-11.0) 11/12/18 15:03 RBC 4.01 M/mm3 (3.65-5.03) 11/12/18 15:03 Hgb 12.0 gm/dl (11.8-15.2) 11/12/18 15:03 Hct 36.3 % (35.5-45.6) 11/12/18 15:03 MCV 91 fl (84-94) 11/12/18 15:03 MCH 30 pg (28-32) 11/12/18 15:03 MCHC 33 % (32-34) 11/12/18 15:03 RDW 14.3 % (13.2-15.2) 11/12/18 15:03 Plt Count 212 K/mm3 (140-440) 11/12/18 15:03 Lymph % (Auto) 17.2 % (13.4-35.0) 11/12/18 15:03 Eagle % (Auto) 9.4 % (0.0-7.3) H 11/12/18 15:03 Eos % (Auto) 0.6 % (0.0-4.3) 11/12/18 15:03 Baso % (Auto) 0.4 % (0.0-1.8) 11/12/18 15:03 Lymph # 1.2 K/mm3 (1.2-5.4) 11/12/18 15:03 Eagle # 0.6 K/mm3 (0.0-0.8) 11/12/18 15:03 Eos # 0.0 K/mm3 (0.0-0.4) 11/12/18 15:03 Baso # 0.0 K/mm3 (0.0-0.1) 11/12/18 15:03 Seg Neutrophils % 72.4 % (40.0-70.0) H 11/12/18 15:03 Seg Neutrophils # 5.0 K/mm3 (1.8-7.7) 11/12/18 15:03 PT 14.8 Sec. (12.2-14.9) 11/12/18 16:50 INR 1.09 (0.87-1.13) 11/12/18 16:50 APTT 28.1 Sec. (24.2-36.6) 11/12/18 16:50 VBG pH 7.392 (7.320-7.420) 11/12/18 15:03 Sodium 127 mmol/L (137-145) L 11/12/18 15:03 Potassium 4.7 mmol/L (3.6-5.0) 11/12/18 15:03 Chloride 90.3 mmol/L (98-107) L 11/12/18 15:03 Carbon Dioxide 24 mmol/L (22-30) 11/12/18 15:03 17 mmol/L 11/12/18 15:03 BUN 8 mg/dL (9-20) L 11/12/18 15:03 0.4 mg/dL (0.8-1.5) L 11/12/18 15:03 Estimated GFR > 60 ml/min 11/12/18 15:03 20 % 11/12/18 15:03 Glucose 575 mg/dL (75-100) H* 11/12/18 15:03 Lactic Acid 1.40 mmol/L (0.7-2.0) 11/12/18 17:52 Calcium 9.3 mg/dL (8.4-10.2) 11/12/18 15:03 Magnesium 1.80 mg/dL (1.7-2.3) 11/12/18 16:50 0.30 mg/dL (0.1-1.2) 11/12/18 15:03 AST 165 units/L (5-40) H 11/12/18 15:03 ALT 84 units/L (7-56) H 11/12/18 15:03 192 units/L (35-129) H 11/12/18 15:03 35.0 umol/L (25-60) 11/12/18 16:50 144 units/L (55-170) 11/12/18 16:50 7.1 g/dL (6.3-8.2) 11/12/18 15:03 4.0 g/dL (3.9-5) 11/12/18 15:03 1.3 % 11/12/18 15:03 47 units/L (13-60) 11/12/18 16:50 Straw (Yellow) 11/12/18 15:20 Clear (Clear) 11/12/18 15:20 5.0 (5.0-7.0) 11/12/18 15:20 Ur Specific Sherman 1.028 (1.003-1.030) 11/12/18 15:20 <15 mg/dl mg/dL (Negative) 11/12/18 15:20 >=500 mg/dL (Negative) 11/12/18 15:20 Tr mg/dL (Negative) 11/12/18 15:20 Neg (Negative) 11/12/18 15:20 Neg (Negative) 11/12/18 15:20 Neg (Negative) 11/12/18 15:20 < 2.0 mg/dL (<2.0) 11/12/18 15:20 Ur Leukocyte Esterase Neg (Negative) 11/12/18 15:20 < 1.0 /HPF (0.0-6.0) 11/12/18 15:20 1.0 /HPF (0.0-6.0) 11/12/18 15:20 U Epithel Cells (Auto) < 1.0 /HPF (0-13.0) 11/12/18 15:20 Few /HPF 11/12/18 15:20 Acetaminophen < 5.0 ug/mL (10.0-30.0) L 11/12/18 16:50 Hepatitis A IgM Ab Non-reactive (NonReactive) 11/12/18 16:50 Hep Bs Antigen Non-reactive (Negative) 11/12/18 16:50 Hep B Core IgM Ab Non-reactive (NonReactive) 11/12/18 16:50 Non-reactive (NonReactive) 11/12/18 16:50 Blood Type O POSITIVE 11/12/18 16:50 Antibody Screen TNR 11/12/18 16:50 CLAIRE Antibody Screen Negative 11/12/18 16:50 - Imaging and Cardiology EKG: image reviewed (sinus rhythm, 76 bpm, QTC prolonged, question atrial enlargement) CT scan - abdomen: report reviewed (A large cystic lesion along the superior aspect of pancreas and a smaller irregular cystic lesionin the pancreatic neck most likely represent pseudocysts secondary to pancreatitis. Diffuse calcification of pancreas is consistent with chronic pancreatitis. ), image reviewed Assessment and Plan Assessment and plan: 38-year-old -[place] male with history of DM 2, pancreatitis who presented to [facility] ED with complaints of generalized weakness and bright red blood per rectum. Ct Abd showed two cystic lesions (1. large lesion along the superior aspect of pancreas, 2. small irregular lesion in the pancreatic neck), which most likely represent pseudocysts secondary to pancreatitis. Patient was found to be hyperglycemic with blood glucose of 575 with no evidence of ketosis. Elevation of liver enzymes AST 165, ALT 84, and Alkaline phosphate 192. Bright red blood per rectum is noted on examination. Dr. Coelho from GI has been consulted and plans to see patient in the a.m. Will admit to medical floor as OBS. Dehydration Hyponatremia- likely secondary to dehydration Hyperglycemia DM 2- uncontrolled Suspicion of cirrhosis Active lower GI bleed Tobacco abuse Marijuana abuse Plan Continue supportive care POC BG monitoring HGBA1C pending SSI and scheduled HS coverage NPO Hydrate with IVF Monitor electrolytes; replete as needed Monitor Liver funtction Monitor Hgb; transfuse prn GI consulted and following Nicotine Patch Counseled for tobacco and marijuana cessation DVT PPX on SCD's hold off on AC d/t active GI bleed; will resume once GI ok Advance Directives: No VTE prophylaxis?: Mechanical Plan of care discussed with patient/family: Yes <JUD ANDRADE - Last Filed: 11/14/18 01:50> History of Present Illness Date of admission: 11/12/18 20:06 Medications and Allergies Active Meds: Active Medications Acetaminophen (Tylenol) 650 mg PO Q4H PRN PRN Reason: Pain MILD(1-3)/Fever >100.5/ONOFRE Dextrose (D50w (25gm) Syringe) 50 ml IV PRN PRN PRN Reason: Hypoglycemia Hydromorphone HCl (Dilaudid) 0.5 mg IV Q3H PRN PRN Reason: Pain , Severe (7-10) Stop: 11/13/18 23:59 Sodium Chloride (Nacl 0.9% 1000 Ml) 1,000 mls @ 125 mls/hr IV DIRECT [facility] Last Admin: 11/13/18 00:14 Dose: 125 mls/hr Documented by: Insulin Human Lispro (Humalog) 0 unit SUB-Q ACHS [facility]; Protocol Last Admin: 11/13/18 00:12 Dose: 4 unit Documented by: Insulin Human Regular (Humulin R) 10 units SUB-Q QHS [facility] Last Admin: 11/13/18 00:13 Dose: 10 units Documented by: Morphine Sulfate (Morphine) 2 mg IV Q4H PRN PRN Reason: Pain, Moderate (4-6) Stop: 11/13/18 23:59 Nicotine (Habitrol) 14 mg TD QDAY [facility] Last Admin: 11/13/18 00:12 Dose: 14 mg Documented by: Ondansetron HCl (Zofran) 4 mg IV Q8H PRN PRN Reason: Nausea And Vomiting Sodium Chloride (Sodium Chloride Flush Syringe 10 Ml) 10 ml IV BID [facility] Last Admin: 11/13/18 00:13 Dose: 10 ml Documented by: Sodium Chloride (Sodium Chloride Flush Syringe 10 Ml) 10 ml IV PRN PRN PRN Reason: LINE FLUSH Exam - Constitutional Vitals: Temp Pulse Resp BP Pulse Ox 98.3 F 68 15 102/70 99 11/12/18 21:18 11/12/18 21:18 11/12/18 21:18 11/12/18 21:18 11/12/18 21:18 Results - Labs CBC & Chem 7: 11/13/18 05:14 11/13/18 05:14 Labs: Laboratory Last Values WBC 6.9 K/mm3 (4.5-11.0) 11/12/18 15:03 RBC 4.01 M/mm3 (3.65-5.03) 11/12/18 15:03 Hgb 12.0 gm/dl (11.8-15.2) 11/12/18 15:03 Hct 36.3 % (35.5-45.6) 11/12/18 15:03 MCV 91 fl (84-94) 11/12/18 15:03 MCH 30 pg (28-32) 11/12/18 15:03 MCHC 33 % (32-34) 11/12/18 15:03 RDW 14.3 % (13.2-15.2) 11/12/18 15:03 Plt Count 212 K/mm3 (140-440) 11/12/18 15:03 Lymph % (Auto) 17.2 % (13.4-35.0) 11/12/18 15:03 Eagle % (Auto) 9.4 % (0.0-7.3) H 11/12/18 15:03 Eos % (Auto) 0.6 % (0.0-4.3) 11/12/18 15:03 Baso % (Auto) 0.4 % (0.0-1.8) 11/12/18 15:03 Lymph # 1.2 K/mm3 (1.2-5.4) 11/12/18 15:03 Eagle # 0.6 K/mm3 (0.0-0.8) 11/12/18 15:03 Eos # 0.0 K/mm3 (0.0-0.4) 11/12/18 15:03 Baso # 0.0 K/mm3 (0.0-0.1) 11/12/18 15:03 Seg Neutrophils % 72.4 % (40.0-70.0) H 11/12/18 15:03 Seg Neutrophils # 5.0 K/mm3 (1.8-7.7) 11/12/18 15:03 PT 14.8 Sec. (12.2-14.9) 11/12/18 16:50 INR 1.09 (0.87-1.13) 11/12/18 16:50 APTT 28.1 Sec. (24.2-36.6) 11/12/18 16:50 VBG pH 7.392 (7.320-7.420) 11/12/18 15:03 Sodium 127 mmol/L (137-145) L 11/12/18 15:03 Potassium 4.7 mmol/L (3.6-5.0) 11/12/18 15:03 Chloride 90.3 mmol/L (98-107) L 11/12/18 15:03 Carbon Dioxide 24 mmol/L (22-30) 11/12/18 15:03 17 mmol/L 11/12/18 15:03 BUN 8 mg/dL (9-20) L 11/12/18 15:03 0.4 mg/dL (0.8-1.5) L 11/12/18 15:03 Estimated GFR > 60 ml/min 11/12/18 15:03 20 % 11/12/18 15:03 Glucose 575 mg/dL (75-100) H* 11/12/18 15:03 POC Glucose 234 (70-105) H 11/12/18 21:05 14.1 % (4-6) H 11/12/18 15:03 Lactic Acid 1.40 mmol/L (0.7-2.0) 11/12/18 17:52 Calcium 9.3 mg/dL (8.4-10.2) 11/12/18 15:03 Magnesium 1.80 mg/dL (1.7-2.3) 11/12/18 16:50 0.30 mg/dL (0.1-1.2) 11/12/18 15:03 AST 165 units/L (5-40) H 11/12/18 15:03 ALT 84 units/L (7-56) H 11/12/18 15:03 192 units/L (35-129) H 11/12/18 15:03 35.0 umol/L (25-60) 11/12/18 16:50 144 units/L (55-170) 11/12/18 16:50 7.1 g/dL (6.3-8.2) 11/12/18 15:03 4.0 g/dL (3.9-5) 11/12/18 15:03 1.3 % 11/12/18 15:03 47 units/L (13-60) 11/12/18 16:50 Straw (Yellow) 11/12/18 15:20 Clear (Clear) 11/12/18 15:20 5.0 (5.0-7.0) 11/12/18 15:20 Ur Specific Sherman 1.028 (1.003-1.030) 11/12/18 15:20 <15 mg/dl mg/dL (Negative) 11/12/18 15:20 >=500 mg/dL (Negative) 11/12/18 15:20 Tr mg/dL (Negative) 11/12/18 15:20 Neg (Negative) 11/12/18 15:20 Neg (Negative) 11/12/18 15:20 Neg (Negative) 11/12/18 15:20 < 2.0 mg/dL (<2.0) 11/12/18 15:20 Ur Leukocyte Esterase Neg (Negative) 11/12/18 15:20 < 1.0 /HPF (0.0-6.0) 11/12/18 15:20 1.0 /HPF (0.0-6.0) 11/12/18 15:20 U Epithel Cells (Auto) < 1.0 /HPF (0-13.0) 11/12/18 15:20 Few /HPF 11/12/18 15:20 Acetaminophen < 5.0 ug/mL (10.0-30.0) L 11/12/18 16:50 Hepatitis A IgM Ab Non-reactive (NonReactive) 11/12/18 16:50 Hep Bs Antigen Non-reactive (Negative) 11/12/18 16:50 Hep B Core IgM Ab Non-reactive (NonReactive) 11/12/18 16:50 Non-reactive (NonReactive) 11/12/18 16:50 Blood Type O POSITIVE 11/12/18 16:50 Antibody Screen TNR 11/12/18 16:50 CLAIRE Antibody Screen Negative 11/12/18 16:50 Assessment and Plan Assessment and plan: Patient seen and examined, discussed with WARRANTY MANAGER. 38-year-old history of hypert ension, diabetes, thyroid comes to the emergency room complaining of generalized weakness and blood per rectum with bowel movements. Status medicine is not working for his blood sugar, he feels the same as when he was diagnosed with diabetes. Physical exam is benign, labs significant for elevated glucose, pseudohyponatremia. Patient's hemoglobin is stable, continue to monitor,GI consult, blood per rectum most like secondary to his hemorrhoids. Agree with glucose management, restart home medication once reconciled
--- NOTE | 2018-11-12 21:12 | Cat Scan Report ---
PROCEDURE: CT ABDOMEN PELVIS W CON TECHNIQUE: Computerized axial tomography of the abdomen and pelvis was performed after the IV inject ion of iodinated nonionic contrast. CT DOSE LENGTH PRODUCT: 729.3 mGycm HISTORY: abd distension ascites suspect ca vs cirrhosis COMPARISONS: None . FINDINGS: Liver, spleen, and adrenal glands are within normal limits. Bilateral kidneys demonstrate uniform enh ancement without hydronephrosis. Urinary bladder is partially filled with normal outlines. There is n o free fluid or free air. Gallbladder is unremarkable. Small bowel loops are within normal limits. Ap pendix is not distinctly visualized. There are no inflammatory changes in the right lower quadrant.. There is diffuse calcification of pancreas. A well-defined cystic lesion measuring 8.0 cm 0.5 cm is n oted superior to the pancreas displacing the stomach superiorly. An irregular fluid collection is not ed measuring 2.7 x 2.2 cm involving the pancreatic neck. Vertebral height is normal. IMPRESSION: A large cystic lesion along the superior aspect of pancreas and a smaller irregular cystic lesion in the pancreatic neck most likely represent pseudocysts secondary to pancreatitis. Diffuse calcificatio n of pancreas is consistent with chronic pancreatitis. This document is electronically signed by Clinton Robbins MD., November 12 2018 10:10:57 PM ET
[2018-11-12] MEDS ORDERED: HABITROL TD SCH (21:40)
[2018-11-12] MEDS ORDERED: HumuLIN R SUB-Q SCH (22:00)
[2018-11-13] MEDS: HumaLOG SUB-Q SCH ×4 (00:12→17:34)
[2018-11-13] MEDS: SODIUM CHLORIDE FLUSH SYRINGE 10 ML IV SCH ×2 (00:13→13:35)
[2018-11-13] MEDS: NACL 0.9% 1000 ML 1,000 ML IV SCH ×2 (00:14→07:59)
[2018-11-13 06:04] LABS: Basophils % (Auto) 0.4 % (0.0-1.8); Eosinophils % (Auto) 0.5 % (0.0-4.3); Hematocrit 36.5 % (35.5-45.6); Hemoglobin 12.3 gm/dl (11.8-15.2); Lymphocytes # (Auto) 1.8 K/mm3 (1.2-5.4); Mean Corpuscular HGB Conc 34 % (32-34); Mean Corpuscular Volume 89 fl (84-94); Monocytes # (Auto) 0.5 K/mm3 (0.0-0.8); Monocytes % (Auto) 8.6 % (0.0-7.3); Platelet Count 209 K/mm3 (140-440); Red Blood Count 4.12 M/mm3 (3.65-5.03); Red Cell Distribution Width 14.3 % (13.2-15.2)
[2018-11-13 06:31] LABS: BUN/Creatinine Ratio 23; Blood Urea Nitrogen 7 mg/dL (9-20); Calcium 9.1 mg/dL (8.4-10.2); Hemolysis Index 8
[2018-11-13] MEDS ORDERED: K-DUR PO ONE (11:00)
[2018-11-13] MEDS ORDERED: HABITROL TD SCH (11:00)
[2018-11-13] MEDS ORDERED: D5NS 1,000 ML IV SCH (11:00)
--- NOTE | 2018-11-13 15:00 | Gastroenterology Consultation ---
History of Present Illness - Reason for Consult Consult date: 11/13/18 GI bleed?, cancer? Requesting physician: VANESSA OSEI - History of Present Illness Patient is a 38 y/o male with PMH of PMH of DM (uncontrolled; hemablogin A1C 14.1) and chronic pancreatitis 2/2 ETOH abuse who presented to ED with c/o generalized weakness, wt loss, and rectal bleeding associated with hx of hemorrhoids to which GI has been consulted. This afternoon patient was sitting on the side of the bed w/o acute distress. He reports chronic diarrhea with multiple BMs per day for the past couple of years with developing bright red blood mixed with stool and on toilet paper for the past few days. Admits to unintentional wt loss (unsure of amount). No recent abx therapy, travel, or kno wn ill contacts. No rectal pain or trauma. Denies fever, CP, SOB, abdominal pain, N/V, hematemesis, melena, or constipation. Has hx of chronic pancreatitis requiring prior hospitalizations 2/2 ETOH abuse and is still actively drinking alcohol but has decreased amount of daily intake over the years from 8 beers a day with occasional liquor to now only ~4 beers per day. No hx of liver disease or previous GI bleeding. No hx or Fhx of IBD or GI cancers. No prior endoscopic evaluation. Past History Past Medical History: diabetes (DM 2), seizures (one episode of questionable seizure history), other (pancreatitis, hemorrhoids) Past Surgical History: No surgical history Social history: smoking (tobacco smokes 1 pack a day, and marijuana abuse), alcohol abuse, other (admits to social drinking once in a while) Family history: no significant family history Medications and Allergies Allergies Allergy/AdvReac Type Severity Reaction Status Date / Time No Known Allergies Allergy Unverified 11/12/18 14:55 Active Meds: Active Medications Acetaminophen (Tylenol) 650 mg PO Q4H PRN PRN Reason: Pain MILD(1-3)/Fever >100.5/ONOFRE Dextrose (D50w (25gm) Syringe) 50 ml IV PRN PRN PRN Reason: Hypoglycemia Last Admin: 11/13/18 08:08 Dose: 50 ml Documented by: Dextrose/Sodium Chloride (D5ns) 1,000 mls @ 100 mls/hr IV DIRECT MARIA DEL CARMEN Insulin Human Lispro (Humalog) 0 unit SUB-Q ACHS [facility]; Protocol Last Admin: 11/13/18 11:30 Dose: Not Given Documented by: Morphine Sulfate (Morphine) 2 mg IV Q4H PRN PRN Reason: Pain, Moderate (4-6) Stop: 11/13/18 23:59 Nicotine (Habitrol) 21 mg TD QDAY [facility] Last Admin: 11/13/18 13:04 Dose: 21 mg Documented by: Ondansetron HCl (Zofran) 4 mg IV Q8H PRN PRN Reason: Nausea And Vomiting Sodium Chloride (Sodium Chloride Flush Syringe 10 Ml) 10 ml IV BID [facility] Last Admin: 11/13/18 13:35 Dose: Not Given Documented by: Sodium Chloride (Sodium Chloride Flush Syringe 10 Ml) 10 ml IV PRN PRN PRN Reason: LINE FLUSH medications reviewed/updated as required Review of Systems - Review of Systems All systems: negative Constitutional: weight loss, fatigue, weakness Gastrointestinal: diarrhea (chronic), BRBPR Exam - Constitutional Vital Signs: Temp Pulse Resp BP Pulse Ox 98.1 F 76 16 118/85 100 11/13/18 12:46 11/13/18 12:46 11/13/18 12:46 11/13/18 12:46 11/13/18 12:46 General appearance: no acute distress, cachectic - Respiratory Respiratory: bilateral: CTA - Cardiovascular Rhythm: regular - Gastrointestinal General gastrointestinal: Present: soft, non-tender, non-distended, normal bowel sounds - Neurologic Neurological: alert and oriented x3 - Labs CBC & Chem 7: 11/13/18 05:14 11/13/18 05:14 Lab Results: Laboratory Results - last 24 hr 11/12/18 11/12/18 11/12/18 15:03 15:03 15:03 WBC 6.9 RBC 4.01 Hgb 12.0 Hct 36.3 MCV 91 MCH 30 MCHC 33 RDW 14.3 Plt Count 212 Lymph % (Auto) 17.2 [place] % (Auto) 9.4 H Eos % (Auto) 0.6 Baso % (Auto) 0.4 Lymph # 1.2 Richardson # 0.6 Eos # 0.0 Baso # 0.0 Seg Neutrophils % 72.4 H Seg Neutrophils # 5.0 PT INR APTT VBG pH 7.392 Sodium 127 L Potassium 4.7 Chloride 90.3 L Carbon Dioxide 24 Anion Gap 17 BUN 8 L Creatinine 0.4 L Estimated GFR > 60 BUN/Creatinine Ratio 20 Glucose 575 H* POC Glucose Hemoglobin A1c Lactic Acid Calcium 9.3 Magnesium Total Bilirubin 0.30 AST 165 H ALT 84 H Alkaline Phosphatase 192 H Ammonia Total Creatine Kinase Total Protein 7.1 Albumin 4.0 Albumin/Globulin Ratio 1.3 Lipase Urine Color Urine Turbidity Urine pH Ur Specific [place] Urine Protein Urine Glucose (UA) Urine Ketones Urine Blood Urine Nitrite Urine Bilirubin Urine Urobilinogen Ur Leukocyte Esterase Urine WBC (Auto) Urine RBC (Auto) U Epithel Cells (Auto) Urine Mucus Acetaminophen Hepatitis A IgM Ab Hep Bs Antigen Hep B Core IgM Ab Hepatitis C Antibody Blood Type Antibody Screen CLAIRE Antibody Screen 11/12/18 11/12/18 11/12/18 15:03 15:20 16:50 WBC RBC Hgb Hct MCV MCH MCHC RDW Plt Count Lymph % (Auto) [place] % (Auto) Eos % (Auto) Baso % (Auto) Lymph # Richardson # Eos # Baso # Seg Neutrophils % Seg Neutrophils # PT INR APTT VBG pH Sodium Potassium Chloride Carbon Dioxide Anion Gap BUN Creatinine Estimated GFR BUN/Creatinine Ratio Glucose POC Glucose Hemoglobin A1c 14.1 H Lactic Acid 2.20 H* Calcium Magnesium Total Bilirubin AST ALT Alkaline Phosphatase Ammonia Total Creatine Kinase Total Protein Albumin Albumin/Globulin Ratio Lipase Urine Color Straw Urine Turbidity Clear Urine pH 5.0 Ur Specific [place] 1.028 Urine Protein <15 mg/dl Urine Glucose (UA) >=500 Urine Ketones Tr Urine Blood Neg Urine Nitrite Neg Urine Bilirubin Neg Urine Urobilinogen < 2.0 Ur Leukocyte Esterase Neg Urine WBC (Auto) < 1.0 Urine RBC (Auto) 1.0 U Epithel Cells (Auto) < 1.0 Urine Mucus Few Acetaminophen Hepatitis A IgM Ab Hep Bs Antigen Hep B Core IgM Ab Hepatitis C Antibody Blood Type Antibody Screen CLAIRE Antibody Screen 11/12/18 11/12/18 11/12/18 16:50 16:50 16:50 WBC RBC Hgb Hct MCV MCH MCHC RDW Plt Count Lymph % (Auto) [place] % (Auto) Eos % (Auto) Baso % (Auto) Lymph # Richardson # Eos # Baso # Seg Neutrophils % Seg Neutrophils # PT INR APTT VBG pH Sodium Potassium Chloride Carbon Dioxide Anion Gap BUN Creatinine Estimated GFR BUN/Creatinine Ratio Glucose POC Glucose Hemoglobin A1c Lactic Acid Calcium Magnesium 1.80 Total Bilirubin AST ALT Alkaline Phosphatase Ammonia 35.0 Total Creatine Kinase 144 Total Protein Albumin Albumin/Globulin Ratio Lipase Urine Color Urine Turbidity Urine pH Ur Specific [place] Urine Protein Urine Glucose (UA) Urine Ketones Urine Blood Urine Nitrite Urine Bilirubin Urine Urobilinogen Ur Leukocyte Esterase Urine WBC (Auto) Urine RBC (Auto) U Epithel Cells (Auto) Urine Mucus Acetaminophen Hepatitis A IgM Ab Hep Bs Antigen Hep B Core IgM Ab Hepatitis C Antibody Blood Type O POSITIVE Antibody Screen TNR CLAIRE Antibody Screen Negative 11/12/18 11/12/18 11/12/18 16:50 16:50 16:50 WBC RBC Hgb Hct MCV MCH MCHC RDW Plt Count Lymph % (Auto) [place] % (Auto) Eos % (Auto) Baso % (Auto) Lymph # [place] # Eos # Baso # Seg Neutrophils % Seg Neutrophils # PT 14.8 INR 1.09 APTT 28.1 VBG pH Sodium Potassium Chloride Carbon Dioxide Anion Gap BUN Creatinine Estimated GFR BUN/Creatinine Ratio Glucose POC Glucose Hemoglobin A1c Lactic Acid Calcium Magnesium Total Bilirubin AST ALT Alkaline Phosphatase Ammonia Total Creatine Kinase Total Protein Albumin Albumin/Globulin Ratio Lipase Urine Color Urine Turbidity Urine pH Ur Specific [place] Urine Protein Urine Glucose (UA) Urine Ketones Urine Blood Urine Nitrite Urine Bilirubin Urine Urobilinogen Ur Leukocyte Esterase Urine WBC (Auto) Urine RBC (Auto) U Epithel Cells (Auto) Urine Mucus Acetaminophen < 5.0 L Hepatitis A IgM Ab Non-reactive Hep Bs Antigen Non-reactive Hep B Core IgM Ab Non-reactive Hepatitis C Antibody Non-reactive Blood Type Antibody Screen CLAIRE Antibody Screen 11/12/18 11/12/18 11/12/18 16:50 17:52 21:05 WBC RBC Hgb Hct MCV MCH MCHC RDW Plt Count Lymph % (Auto) [place] % (Auto) Eos % (Auto) Baso % (Auto) Lymph # Richardson # Eos # Baso # Seg Neutrophils % Seg Neutrophils # PT INR APTT VBG pH Sodium Potassium Chloride Carbon Dioxide Anion Gap BUN Creatinine Estimated GFR BUN/Creatinine Ratio Glucose POC Glucose 234 H Hemoglobin A1c Lactic Acid 1.40 Calcium Magnesium Total Bilirubin AST ALT Alkaline Phosphatase Ammonia Total Creatine Kinase Total Protein Albumin Albumin/Globulin Ratio Lipase 47 Urine Color Urine Turbidity Urine pH Ur Specific [place] Urine Protein Urine Glucose (UA) Urine Ketones Urine Blood Urine Nitrite Urine Bilirubin Urine Urobilinogen Ur Leukocyte Esterase Urine WBC (Auto) Urine RBC (Auto) U Epithel Cells (Auto) Urine Mucus Acetaminophen Hepatitis A IgM Ab Hep Bs Antigen Hep B Core IgM Ab Hepatitis C Antibody Blood Type Antibody Screen CLAIRE Antibody Screen 11/13/18 11/13/18 11/13/18 05:14 05:14 07:39 WBC 5.6 RBC 4.12 Hgb 12.3 Hct 36.5 MCV 89 MCH 30 MCHC 34 RDW 14.3 Plt Count 209 Lymph % (Auto) 32.0 Richardson % (Auto) 8.6 H Eos % (Auto) 0.5 Baso % (Auto) 0.4 Lymph # 1.8 Richardson # 0.5 Eos # 0.0 Baso # 0.0 Seg Neutrophils % 58.5 Seg Neutrophils # 3.3 PT INR APTT VBG pH Sodium 137 D Potassium 3.4 L D Chloride 97.3 L Carbon Dioxide 26 Anion Gap 17 BUN 7 L Creatinine 0.3 L Estimated GFR > 60 BUN/Creatinine Ratio 23 Glucose 65 L POC Glucose 76 Hemoglobin A1c Lactic Acid Calcium 9.1 Magnesium Total Bilirubin AST ALT Alkaline Phosphatase Ammonia Total Creatine Kinase Total Protein Albumin Albumin/Globulin Ratio Lipase Urine Color Urine Turbidity Urine pH Ur Specific [place] Urine Protein Urine Glucose (UA) Urine Ketones Urine Blood Urine Nitrite Urine Bilirubin Urine Urobilinogen Ur Leukocyte Esterase Urine WBC (Auto) Urine RBC (Auto) U Epithel Cells (Auto) Urine Mucus Acetaminophen Hepatitis A IgM Ab Hep Bs Antigen Hep B Core IgM Ab Hepatitis C Antibody Blood Type Antibody Screen CLAIRE Antibody Screen Assessment and Plan 1.rectal bleeding 2.wt loss 3.chronic pancreatitis 4.elevated LFTs 6.chronic diarrhea -afebrile -WBC, H/H, plt, INR WNL -LFTs-T.bari 0.30, AST 165, ALT 84, alk phos 192 -lipase WNL -acute hepatitis panel negative -CEA pending -abd CT showed-a large cystic lesion along the superior aspect of pancreas and a smaller irregular cystic lesion in the pancreatic neck most likely represent pseudocysts secondary to pancreatitis, along with diffuse calcification of pancreas is consistent with chronic pancreatitis -etiology-most likely 2/2 chronic pancreatitis 2/2 ETOH abuse with chronic diarrhea from pancreatic insufficiency -start on trial of creon -alcohol cessations discussed/encouraged with patient -electrolyte management per primary team -recommend further evaluation of cystic lesion in the pancreas with MRI vs EUS, along with EGD/colonoscopy for evaluation of wt loss/rectal bleeding to r/o malignancy, however after discussion with patient including purpose and risks vs benefits, he wished to not proceed with procedures/further workup and is currently considering leaving hospital AMA- hospitalist aware -if patient leaves AMA, recommend f/u in clinic for further workup/management
[2018-11-13] MEDS ORDERED: CREON DR 12,000 UNITS PO ONE (15:36)
--- NOTE | 2018-11-13 15:45 | Progress Note ---
Assessment and Plan Assessment and plan: Patient is a 38-year-old -[place] man with a history of chronic pancreatitits from prior Etoh abuse, chronic diarrhea, hemorrhoids and DM 2 who presented to [facility] ED with generalized weakness and bright red blood per rectum. CT abd/pelvis showed two cystic lesions (1. large lesion along the superior aspect of pancreas, 2. small irregular lesion in the pancreatic neck), which most likely represent pseudocysts secondary to pancreatitis. Patient was found to be hyperglycemic with blood glucose of 575 with no evidence of ketosis. Elevation of liver enzymes AST 165, ALT 84, and Alkaline phosphate 192. Bright red blood per rectum is noted on examination. Dr. Coelho from GI has been consulted; Will admit to medical floor as OBS. Acute blood loss anemia: GI recommends scope but patient is refusing, Severe malnutrition, poa: consult Retention Manager, dietary supplement, treat with Pancreatitic enzymes Hyponatremia- likely secondary to dehydration DM 2- uncontrolled Hyperglycemia: : use SSI Suspicion of cirrhosis: GI to see Tobacco abuse: counseling done, add nicotine patch Marijuana abuse: couneling done Hypotensive: add IV fluid Hypoglycemia: add iv dextrose History Interval history: Patient was seen and examined. Follow-up on current diagnosis rectal bleeding, resolved per patient. No overnight events reported to me. Patient denies any chest pain, shortness breath, nausea/vomiting or severe headaches. Imaging, nursing note, chart, labs and old chart reviewed. Discussed with patient. Patient is threatening to leave but bp is low, bg too low and potassium needs replacing. Counseling done, if he leaves AMA, he must not drive. I started him on IV with dextrose additive. Hospitalist Physical - Physical exam Narrative exam: Gen: thin cachetic, bmi 16.8, NAD, Awake, Alert, Orientated HEENT: NCAT, EOMI, PERRL, OP Clear, bilateral adventist muscle wastings Neck: supple, no adenopathy, no thyromegaly, no JVD CVS/Heart: RRR, normal S1S2, pulses present bilaterally Chest/Lungs: CTA B, Symmetrical chest exddfpansion, good air entry bilaterally GI/Abdomen: soft, NTND, good bowel sounds, no guarding or rebound /Bladder: no suprapubic tenderness, no CVA or paraspinal tenderness Extermity/Skin: no c/c/e, no obvious rash, bilateral thenar muscle wasting. MSK: FROM x 4 Neuro: CN 2-12 grossly intact, no new focal deficits Psych: calm - Constitutional Vitals: Temp Pulse Resp BP Pulse Ox 98.1 F 76 16 118/85 100 11/13/18 12:46 11/13/18 12:46 11/13/18 12:46 11/13/18 12:46 11/13/18 12:46 Results - Labs CBC & Chem 7: 11/13/18 05:14 11/13/18 05:14 Labs: Laboratory Last Values WBC 5.6 K/mm3 (4.5-11.0) 11/13/18 05:14 RBC 4.12 M/mm3 (3.65-5.03) 11/13/18 05:14 Hgb 12.3 gm/dl (11.8-15.2) 11/13/18 05:14 Hct 36.5 % (35.5-45.6) 11/13/18 05:14 MCV 89 fl (84-94) 11/13/18 05:14 MCH 30 pg (28-32) 11/13/18 05:14 MCHC 34 % (32-34) 11/13/18 05:14 RDW 14.3 % (13.2-15.2) 11/13/18 05:14 Plt Count 209 K/mm3 (140-440) 11/13/18 05:14 Lymph % (Auto) 32.0 % (13.4-35.0) 11/13/18 05:14 [place] % (Auto) 8.6 % (0.0-7.3) H 11/13/18 05:14 Eos % (Auto) 0.5 % (0.0-4.3) 11/13/18 05:14 Baso % (Auto) 0.4 % (0.0-1.8) 11/13/18 05:14 Lymph # 1.8 K/mm3 (1.2-5.4) 11/13/18 05:14 [place] # 0.5 K/mm3 (0.0-0.8) 11/13/18 05:14 Eos # 0.0 K/mm3 (0.0-0.4) 11/13/18 05:14 Baso # 0.0 K/mm3 (0.0-0.1) 11/13/18 05:14 Seg Neutrophils % 58.5 % (40.0-70.0) 11/13/18 05:14 Seg Neutrophils # 3.3 K/mm3 (1.8-7.7) 11/13/18 05:14 PT 14.8 Sec. (12.2-14.9) 11/12/18 16:50 INR 1.09 (0.87-1.13) 11/12/18 16:50 APTT 28.1 Sec. (24.2-36.6) 11/12/18 16:50 VBG pH 7.392 (7.320-7.420) 11/12/18 15:03 Sodium 137 mmol/L (137-145) D 11/13/18 05:14 Potassium 3.4 mmol/L (3.6-5.0) L D 11/13/18 05:14 Chloride 97.3 mmol/L (98-107) L 11/13/18 05:14 Carbon Dioxide 26 mmol/L (22-30) 11/13/18 05:14 17 mmol/L 11/13/18 05:14 BUN 7 mg/dL (9-20) L 11/13/18 05:14 0.3 mg/dL (0.8-1.5) L 11/13/18 05:14 Estimated GFR > 60 ml/min 11/13/18 05:14 23 % 11/13/18 05:14 Glucose 65 mg/dL (75-100) L 11/13/18 05:14 POC Glucose 76 (70-105) 11/13/18 07:39 14.1 % (4-6) H 11/12/18 15:03 Lactic Acid 1.40 mmol/L (0.7-2.0) 11/12/18 17:52 Calcium 9.1 mg/dL (8.4-10.2) 11/13/18 05:14 Magnesium 1.80 mg/dL (1.7-2.3) 11/12/18 16:50 0.30 mg/dL (0.1-1.2) 11/12/18 15:03 AST 165 units/L (5-40) H 11/12/18 15:03 ALT 84 units/L (7-56) H 11/12/18 15:03 192 units/L (35-129) H 11/12/18 15:03 35.0 umol/L (25-60) 11/12/18 16:50 144 units/L (55-170) 11/12/18 16:50 7.1 g/dL (6.3-8.2) 11/12/18 15:03 4.0 g/dL (3.9-5) 11/12/18 15:03 1.3 % 11/12/18 15:03 47 units/L (13-60) 11/12/18 16:50 Straw (Yellow) 11/12/18 15:20 Clear (Clear) 11/12/18 15:20 5.0 (5.0-7.0) 11/12/18 15:20 Ur Specific [place] 1.028 (1.003-1.030) 11/12/18 15:20 <15 mg/dl mg/dL (Negative) 11/12/18 15:20 >=500 mg/dL (Negative) 11/12/18 15:20 Tr mg/dL (Negative) 11/12/18 15:20 Neg (Negative) 11/12/18 15:20 Neg (Negative) 11/12/18 15:20 Neg (Negative) 11/12/18 15:20 < 2.0 mg/dL (<2.0) 11/12/18 15:20 Ur Leukocyte Esterase Neg (Negative) 11/12/18 15:20 < 1.0 /HPF (0.0-6.0) 11/12/18 15:20 1.0 /HPF (0.0-6.0) 11/12/18 15:20 U Epithel Cells (Auto) < 1.0 /HPF (0-13.0) 11/12/18 15:20 Few /HPF 11/12/18 15:20 Acetaminophen < 5.0 ug/mL (10.0-30.0) L 11/12/18 16:50 Hepatitis A IgM Ab Non-reactive (NonReactive) 11/12/18 16:50 Hep Bs Antigen Non-reactive (Negative) 11/12/18 16:50 Hep B Core IgM Ab Non-reactive (NonReactive) 11/12/18 16:50 Non-reactive (NonReactive) 11/12/18 16:50 Blood Type O POSITIVE 11/12/18 16:50 Antibody Screen TNR 11/12/18 16:50 CLAIRE Antibody Screen Negative 11/12/18 16:50 Active Medications - Current Medications Current Medications: Generic Name Dose Route Start Last Admin Trade Name Freq PRN Reason Stop Dose Admin Acetaminophen 650 mg 11/12/18 20:06 Tylenol PO Q4H PRN Pain MILD(1-3)/Fever >100.5/ONOFRE Dextrose 50 ml 11/12/18 20:21 11/13/18 08:08 D50w (25gm) Syringe IV 50 ml PRN PRN Administration Hypoglycemia Dextrose/Sodium Chloride 1,000 mls @ 100 mls/hr 11/13/18 11:00 D5ns IV DIRECT MARIA DEL CARMEN Insulin Human Lispro 0 unit 11/12/18 22:00 11/13/18 11:30 Humalog SUB-Q Not Given ACHS MARIA DEL CARMEN Protocol Morphine Sulfate 2 mg 11/12/18 20:06 Morphine IV 11/13/18 23:59 Q4H PRN Pain, Moderate (4-6) Nicotine 21 mg 11/13/18 11:00 11/13/18 13:04 Habitrol TD 21 mg QDAY MARIA DEL CARMEN Administration Ondansetron HCl 4 mg 11/12/18 20:06 Zofran IV Q8H PRN Nausea And Vomiting Sodium Chloride 10 ml 11/12/18 22:00 11/13/18 13:35 Sodium Chloride Flush Syringe 10 Ml IV Not Given BID MARIA DEL CARMEN Sodium Chloride 10 ml 11/12/18 20:06 Sodium Chloride Flush Syringe 10 Ml IV PRN PRN LINE FLUSH
[2018-11-13 18:02] VITALS: BP 111/75
--- NOTE | 2018-11-13 22:12 | Discharge Summary ---
Providers - Providers Date of Admission: 11/12/18 20:06 Attending physician: MEET JONAS 11/12/18 16:29 Consult to Physician [CONS] Urgent Comment: Consulting Provider: JANE MORRISON Physician Instructions: Reason For Exam: gi bleed ? cancer 11/12/18 16:34 Consult to Case Management [CONS] Urgent Services Needed at Discharge: [employer] Notified:: needs insurance outpatient follow up 11/12/18 20:06 Consult to Dietitian/Nutrition [CONS] Routine Physician Instructions: Reason For Exam: Reason for Consult: Diet education Primary care physician: [facility] MD MARICRUZ Hospitalization Condition: Fair Disposition: DC-07 LEFT AGAINST MED ADVICE Core Measure Documentation - Palliative Care Palliative Care/ Comfort Measures: Not Applicable - Core Measures Any of the following diagnoses?: none - VTE Discharge Requirements Deep Vein Thrombosis/Pulmonary Embolism Present on Admission: No Has pt received <5 days of overlap therapy or INR<2.0: No Anticoagulant overlap therapy prescribed at discharge: No Contraindication No Overlap Therapy order at DC: Not Indicated Exam - Constitutional Vitals: Temp Pulse Resp BP Pulse Ox 98.1 F 80 16 111/75 99 11/13/18 17:23 11/13/18 17:23 11/13/18 17:23 11/13/18 17:23 11/13/18 17:23 Plan Follow up with: EVIE WILCOX MD [Primary Care Provider] - 3-5 Days
== END 2018-11-13 17:10 | disposition left against medical advice (07) ==
LOC: ED 14:52 → 3A 20:06
PROVIDERS: ADMIT Internal Medicine; ATTEND Internal Medicine
DX: E86.0 Dehydration (principal); K92.2 Gastrointestinal hemorrhage, unspecified; E87.1 Hypo-osmolality and hyponatremia; E11.65 Type 2 diabetes mellitus with hyperglycemia; K74.60 Unspecified cirrhosis of liver; F12.10 Cannabis abuse, uncomplicated; F17.210 Nicotine dependence, cigarettes, uncomplicated; Z79.899 Other long term (current) drug therapy
CPT/HCPCS: 36415; 74177; 80048; 80053; 80074; 81001; 82140; 82271; 82378; 82550; 82805; 82962; 83036; 83690; 83735; 85025; 85610; 85730; 86850; 86900; 86901; 93005; 93010; 96361; 96372; 96374; 96375; 99284; 99406; G0378; G0480; J7030; J7040; Q9967; 80320; J1815; J7042